=== PATIENT | male | born 1995 | race Caucasian/White ===

== ENCOUNTER 2018-07-07 14:45 | Emergency (ER) | payer SELFPAY ==
--- NOTE | 2018-07-07 15:31 | RAD ---
LEFT FOREARM TWO VIEWS: History: Injury. Comparison: None. FINDINGS: No fracture. No malalignment. Early opacities along the medial aspect of the wrist seen on AP radiogr aph. IMPRESSION: Intact forearm. Possible radiopacities projecting over the medial wrist seen only on the lateral view . POS: [facility]
--- NOTE | 2018-07-07 16:09 | RAD ---
LEFT HAND TWO VIEWS: History: Pain. FINDINGS: There are superficial radiopacities along the medial aspect of the wrist. No acute displaced fracture is appreciated. IMPRESSION: 1. No acute displaced fracture. 2. Superficial radiopacities along the medial and dorsal aspect of the wrist. POS: [facility]
--- NOTE | 2018-07-07 16:20 | RAD ---
LEFT ELBOW TWO VIEW 07/07/18 HISTORY: Pain. COMPARISON: None. FINDINGS: There is a large hematoma along the anterior margin of the proximal forearm. There appears to be a ra diopaque foreign object along the lateral soft tissues of the elbow which may be superficial debris. IMPRESSION: 1. Large contusion or hematoma along the anterior proximal forearm. 2. No acute fracture. 3. Small radiopacity along the lateral margin of the superficial soft tissues of the elbow measu ring 4 mm. POS: [facility]
[2018-07-07] MEDS ORDERED: Bacitracin Zinc 1 Packet ONE ×2 (17:15→17:27)
[2018-07-07] MEDS ORDERED: Ketorolac Tromethamine 30 MG/ML VIAL ONE (17:15)
[2018-07-07] MEDS ORDERED: CEFAZOLIN 1 GM VIAL ONE (18:11)
== END 2018-07-07 18:56 | disposition home or self-care (01) ==
LOC: ERS 14:45
DX: S91.312A Laceration without foreign body, left foot, initial encounter (principal); S50.812A Abrasion of left forearm, initial encounter; S80.812A Abrasion, left lower leg, initial encounter; S80.811A Abrasion, right lower leg, initial encounter; V43.52XA Car driver injured in collision with other type car in traffic accident, initial encounter
CPT/HCPCS: 96365; 96375; G0390; J0690; J1885